=== PATIENT | female | born 1985 | race Caucasian/White ===

== ENCOUNTER 2024-12-01 23:11 | Day surgery (SDC) | payer OTHER, SELFPAY ==
[2024-12-01 18:33] VITALS: BP 165/110
--- NOTE | 2024-12-01 18:57 | ED.GENMED ---
History of Present Illness
<YADIRA Xiong - Last Filed: 12/01/24 23:14>
General
Chief Complaint: Vaginal Bleeding
Source: patient
Exam Limitations: none
Time Seen by Provider: 12/01/24 18:49
Nursing documentation reviewed up to this point in time: agreed with
History of Present Illness
History of Present Illness:
Patient is a 39-year-old female with past medical history of factor V Leiden, on progesterone only control, Mendy presents to the ER for vaginal bleeding. Patient reports she has been bleeding for the past 8 days and this was 2 weeks early
for her regular menses. She typically reports she bleeds heavy for the first 2 days however for the past 8 days she has been bleeding heavy and has had cramping the entire time. Normally when she has her menstrual cycle she only has cramping for
the first 1 or 2 days. She took a home test at home which was positive. She has not missed her control.
Review of Systems
<YADIRA Xiong - Last Filed: 12/01/24 23:14>
Review of Systems
Allergies reviewed?: Yes
Constitutional: Reports no symptoms
Respiratory: Reports no symptoms
Cardiac: Reports no symptoms
: Reports bleeding and other (lower abd cramping )
Musculoskeletal: Reports no symptoms
Skin: Reports no symptoms
Hematologic/Lymphatic: Reports no symptoms
Psychiatric: Reports no symptoms
Phy Exam
<YADIAR Xiong - Last Filed: 12/01/24 23:14>
General Physical Exam
General Presentation: no apparent distress
General age: appears stated age
General Skin: warm and dry
General Habitus: normal
General Mental: alert
General Hydration: appears well hydrated
Gastrointestinal Exam
Gastrointestinal Exam: non tender and soft
Neurological Exam
Neurological Exam: alert and oriented x3
Course
<YADIRA Xiong - Last Filed: 12/01/24 23:14>
Orders/Labs/Results
Orders:
Orders
12/01/24 19:10
IV Insert/Care/Rem.- Treatment PRN
0.9% Sodium Chloride 1000 ml [Nss] 1,000 ml IV BOLUS
12/01/24 19:11
Urinalysis Reflex To Culture Urgent
Specimen Description:
Date Specimen was Collected: 12/01/24
Time Specimen was Collected: 19:13
12/01/24 19:32
Blood Group&Type Urgent
Gel Atypical Antibody Screen Urgent
[id number] Wristband Number:
Beta HCG Quantitative Urgent
Is this a screen?: No
Complete Blood Count/With Diff Urgent
Comprehensive Metabolic Panel Urgent
12/01/24 19:43
US 1st Trimester Urgent
Comment:
Reason For Exam: vag bleeding/cramping
12/01/24 19:55
ABO2 Urgent
BBK Wristband Number:
Associate notified that ABO2 has been ordered: [id number]
Date: 12/01/24
Time: 19:45
[facility]ship ID: [id number]
12/01/24 21:49
0.9% Sodium Chloride 1000 ml [Nss] 1,000 ml IV BOLUS
12/01/24 22:46
Compression Sleeves [Pneumatic Compression Sleeves] As Directed
Type: Thigh high
12/01/24 22:48
DX Deep Vein Thrombosis Video Routine
12/01/24 23:00
CeFAZolin 2 GRAM [Ancef] 2 grams in 10 ml IV PRE PROCEDURE
Flush (0.9% Sodium Chloride) [Flush (Nss)] See Dose Instructions IV PER PROTOCOL
Abnormal Lab Results
12/01/24
19:32
Glucose 121 H mg/dl
(70-99)
12/01/24 19:32
12/01/24 19:32
Vital Signs
Initial and Last Documented VS:
Initial Vital Signs
Temp Pulse Resp BP Pulse Ox
98.8 F 118 18 165/110 99
12/01/24 18:33 12/01/24 18:33 12/01/24 18:33 12/01/24 18:33 12/01/24 18:33
Last Documented Vital Signs
Temp Pulse Resp BP Pulse Ox
98.8 F 118 18 165/110 99
12/01/24 18:33 12/01/24 18:33 12/01/24 18:33 12/01/24 18:33 12/01/24 18:33
<Jose Crawford MD - Last Filed: 12/01/24 22:44>
Orders/Labs/Results
Orders:
Orders
12/01/24 19:10
IV Insert/Care/Rem.- Treatment PRN
0.9% Sodium Chloride 1000 ml [Nss] 1,000 ml IV BOLUS
12/01/24 19:11
Urinalysis Reflex To Culture Urgent
Specimen Description:
Date Specimen was Collected: 12/01/24
Time Specimen was Collected: 19:13
12/01/24 19:32
Blood Group&Type Urgent
Gel Atypical Antibody Screen Urgent
BBK Wristband Number:
Beta HCG Quantitative Urgent
Is this a screen?: No
Complete Blood Count/With Diff Urgent
Comprehensive Metabolic Panel Urgent
12/01/24 19:43
US 1st Trimester Urgent
Comment:
Reason For Exam: vag bleeding/cramping
12/01/24 19:55
ABO2 Urgent
BBK Wristband Number:
Associate notified that ABO2 has been ordered: [id number]
Date: 12/01/24
Time: 19:45
[facility]ship ID: [id number]
12/01/24 21:49
0.9% Sodium Chloride 1000 ml [Nss] 1,000 ml IV BOLUS
12/01/24 22:46
Compression Sleeves [Pneumatic Compression Sleeves] As Directed
Type: Thigh high
12/01/24 22:48
DX Deep Vein Thrombosis Video Routine
12/01/24 23:00
CeFAZolin 2 GRAM [Ancef] 2 grams in 10 ml IV PRE PROCEDURE
Flush (0.9% Sodium Chloride) [Flush (Nss)] See Dose Instructions IV PER PROTOCOL
Abnormal Lab Results
12/01/24
19:32
Glucose 121 H mg/dl
(70-99)
12/01/24 19:32
12/01/24 19:32
Vital Signs
Initial and Last Documented VS:
Initial Vital Signs
Temp Pulse Resp BP Pulse Ox
98.8 F 118 18 165/110 99
12/01/24 18:33 12/01/24 18:33 12/01/24 18:33 12/01/24 18:33 12/01/24 18:33
Last Documented Vital Signs
Temp Pulse Resp BP Pulse Ox
98.8 F 118 18 165/110 99
12/01/24 18:33 12/01/24 18:33 12/01/24 18:33 12/01/24 18:33 12/01/24 18:33
<YADIRA Xiong - Last Filed: 12/01/24 23:14>
MDM/Problems Addressed
Differential Diagnosis Includes:
not limited to:
Miscarriage irregular vaginal bleeding, ruptured ectopic
MDM/Problems Addressed:
As documented patient is a 31-year-old female who presented with 3 days of vaginal bleeding, this is actually 2 weeks earlier than her due date for her scheduled menses. She presented with bleeding and abdominal cramping denied any lightheaded
dizziness. Patient is on oral Jencycla has not missed her dose of medication. Her beta hCG is low at 899 and as per radiology she has an acute ruptured ectopic . She is stable her blood pressure is 139/84 taken by myself her heart rate
is in the 80s. She is no acute distress. Case reviewed with BLADE ALIGNER and ED physician,.
Pt was eval by DR England who took pt to the OR.
<YADIRA Xiong - Last Filed: 12/01/24 23:14>
*Critical Care Note
Total Time (30-74mins, 75-104mins- exclusive of procedures): Not Applicable
ED Attending Note
<YADIRA Xiong - Last Filed: 12/01/24 23:14>
-
Portions of this chart may have been created with voice recognition software.� Occasional wrong word or��sound alike� substitutions may have occurred due to the inherent limitations of voice recognition software.
<Jose Crawford MD - Last Filed: 12/01/24 22:44>
ED Attending Note
Patient seen and examined by attending physician: Yes
ED Attending Note:
I have seen and evaluated the patient with a [id number] encounter. I have spoken to the advance practicer provider and involved in the medical history, the physical exam, medical decision making.
Evaluation and management service: agree unless noted differently below.
Results interpretation: agree unless noted differently below.
Focused HPI: 39-year-old female with no reported chronic medical history A1 presents to the emergency department for evaluation of vaginal bleeding and positive test. Patient says that her last menstrual period was 3 weeks ago. 1
week ago she started bleeding early�she thought that she was having an early period. She says that bleeding has been heavier than usual and has been ongoing x 8 days which is longer than usual for her menstrual period. She has had associated
cramping somewhat worse on the right side. Today took a test and it was positive and so she came to the ER.
Physical exam: Awake and alert no distress. Hypertensive, mildly tachycardic. Abdomen soft tender to palpation in the right lower quadrant.
Medical Decision Makin-year-old female presents for vaginal bleeding and cramping. Positive test at home today. CBC shows normal hemoglobin. CMP no clinically significant abnormalities. Her hCG is positive, hCG quant 899.
Unfortunately her pelvic ultrasound was concerning for ruptured ectopic . Nurse practitioner discussed with [facility] for OR.
Discharge Plan
Departure
Patient Disposition: OR
Date of Disposition: 12/01/24
Time of Disposition: 22:35
Admit to: OR
Admit to doctor: Tomás
Presentation/result/management discussed w/ accepting MD/DO: Tomás
Patient with high blood pressure during this ER visit?: Yes
Condition: Fair
Covid-19: Not Applicable
Discharge Problem:
ruptured ectopic
Referrals:
Delano Marino MD [Family Provider] -
Interventions
Interventions:
*Risk Screen - Suicide Last Done: 12/01/24 18:35
*General Assessment Last Done: 12/01/24 18:35
*Neglect/Abuse Screening Last Done: 12/01/24 18:35
*ED- Fall Risk Assessment Last Done: 12/01/24 19:41
*ED COVID-19 Vaccine History Last Done: 12/01/24 18:35
*Nursing Disposition Last Done: 12/01/24 23:08
ED-Female Genitourinary Assessment Last Done: 12/01/24 19:38
Discharge Date and Time
Print Language: CHINESE
[2024-12-01] MEDS: NSS 1000 IV ×2 (19:32→21:51)
[2024-12-01 19:37] VITALS: BMI 36.3
[2024-12-01 19:41] LABS: % Basophils 0.9 % (0-2); % Eosinophils 3.1 % (0-6); % Immature Granulocytes 0.1 % (0-0.5); % Lymphocytes 25.2 % (20.5-51.1); % Monocytes 7.3 % (1.7-9.3); % Neutrophils 63.4 % (42.2-75.2); Absolute Basophils 0.1 10^3/uL (0-0.2); Absolute Eosinophils 0.2 10^3/uL (0-0.7); Absolute Lymphocytes 1.7 10^3/uL (1.2-3.4); Absolute Monocytes 0.5 10^3/uL (0.1-0.6); Absolute Neutrophils 4.3 10^3/uL (1.4-6.5); Hemoglobin 13.2 g/dL (12.0-16.0); Mean Corp Hgb Conc. 34.7 g/dL (33.0-37.0); Mean Corpuscular Hgb 29.9 pg (27.0-31.0); Nucleated Red Blood Cells % 0 %; Platelet Count 258 10^3/uL (130-400); Red Blood Cell Count 4.42 10^6/uL (4.20-5.40); Red Cell Dist. Width 12.4 % (11.5-14.5); White Blood Cell Count 6.8 10^3/uL (4.8-10.8)
[2024-12-01 19:45] VITALS: BP 112/64
[2024-12-01 20:13] LABS: ALT (SGPT) 17 U/L (0-35); AST (SGOT) 20 U/L (14-36); Albumin 4.1 g/dl (3.5-5.0); Alkaline Phosphatase 62 U/L (38-126); Blood Urea Nitrogen 8 mg/dl (7-17); Calcium 9.2 mg/dl (8.4-10.2); Carbon Dioxide 26 mmol/L (22-30); Chloride 105 mmol/L (98-107); Estimated Creatinine Clearance > 125 ml/min; Glucose 121 mg/dl (70-99); Potassium 3.7 mmol/L (3.5-5.1); Sodium 140 mmol/L (135-145); Total Bilirubin 0.7 mg/dl (0.2-1.3); Total Protein 7.5 g/dl (6.3-8.2); eGFR > 60.00
[2024-12-01 20:18] LABS: Beta HCG Quantitative 899.19 mIU/ml
[2024-12-01 23:00] VITALS: BP 139/84
[2024-12-01 23:15] LABS: Urine Albumin Negative (Neg - Trace); Urine Bilirubin Negative (Negative); Urine Character Slightly Cloudy (Clear); Urine Color Yellow; Urine Glucose Negative (Negative); Urine Ketone Negative (Negative); Urine Leukocyte Negative (Negative); Urine Nitrite Negative (Negative); Urine Occult Blood 4+ (Negative); Urine Specific Gravity 1.005 (<1.030); Urine Urobilinogen Negative (Neg - 1+)
[2024-12-01 23:22] LABS: Urine Squamous Cell 16-20 /LPF (Few)
[2024-12-01 23:23] LABS: Urine Bacteria Moderate (Negative); Urine Red Blood Cell 16-20 /HPF (0-2)
[2024-12-02] VITALS (11 sets, daily range): BP systolic 101–139; BP diastolic 58–84
[2024-12-02] MEDS: DEMEROL 12.5 MG IV ×2 (01:27→01:37)
[2024-12-02] MEDS: SUBLIMAZE 50 MCG IV (01:56)
--- NOTE | 2024-12-02 02:59 | PTCARENOTE ---
Pt arrived to floor from PACU. Pt AAOx3. HR in the 70's. POX 98% on RA. + bowel, round abd. 3 lap sites with steri strips and bandaids in place. Pt reports abd pain 3/10 at this time. Knee high seq in place. Right AC int capped. Call lemos in reach.
Water provided. Will continue to monitor.
[2024-12-02] MEDS: MOTRIN 800 MG PO (03:41)
--- NOTE | 2024-12-02 05:48 | W.PN.GYN.DG ---
Today's Communication / Plan
-
CBC this am
D/c to home after am BW
Regular diet this am
F/u in office in 2 weeks for post opcheck
Will contact pt about f/u hcg before that visit
Assessment / Plan
-
Assessment:
s/p LPS BS for reuptrued R ectopic and sterilization
Plan:
CBC this am
D/c to home after am BW
Regular diet this am
F/u in office in 2 weeks for post opcheck
Will contact pt about f/u hcg before that visit
Subjective / Objective Data
Subjective Data
PT doing well - pain is much better - no pain on right - no n/v - took only motrin for post op pain per pt
Objective Data
Vital Signs
Temp Pulse Resp BP Pulse Ox
98.1 F 97 18 114/65 96
12/02/24 05:31 12/02/24 05:31 12/02/24 05:31 12/02/24 05:31 12/02/24 05:31
Intake & Output
11/30/24 12/01/24 12/02/24
06:59 06:59 06:59
Intake Total 680 / 680
Output Total 400 / 400
Balance 280 / 280
Intake:
Oral fluids 480 / 480
IV fluids (Total) 200 / 200
normosol 200 / 200
Output:
Urine, Voided 400 / 400
Physical Exam
-
Abdomen: Soft and Other (appropriately tneder )
Extremities: Other (+ comnp stockings )
Incision: Clean, Dry and Intact (scnat blood on bandaids)
Data Reviewed
-
Lab Data
12/01/24 19:32
Urine Color Yellow 12/01/24 22:57
Urine Clarity Slightly cloudy (Clear) 12/01/24 22:57
Urine pH 7.0 (5.0-9.0) 12/01/24 22:57
Ur Specific [place] 1.005 (<1.030) 12/01/24 22:57
Urine Ketones Negative (Negative) 12/01/24 22:57
Urine Bilirubin Negative (Negative) 12/01/24 22:57
Urine Urobilinogen Negative (Neg - 1+) 12/01/24 22:57
--- NOTE | 2024-12-02 05:53 | W.DS.TRANS ---
DC Summary - Business Services Representative
-
Discharge Instructions:
Discharge Diagnosis/Procedures s/p LPS - bilat salpingectomy - for ruptured
ectopci and strilization
Diet No restrictions
Activity No strenuous activity
Additional Activity Pelvic rest
Driving Restrictions No driving for 24 hours
Bathing Restrictions OK to Shower
Instructions:
Stand-Alone Forms:
Changes to Home Medications: No
Discharge Medications:
Home Medication Changes
Pending Results: No
[2024-12-02 07:01] LABS: Hematocrit 35.7 % (37.0-47.0); Hemoglobin 12.2 g/dL (12.0-16.0); Mean Corp Hgb Conc. 34.2 g/dL (33.0-37.0); Mean Corpuscular Hgb 29.5 pg (27.0-31.0); Mean Corpuscular Volume 86.2 fL (81.0-99.0); Mean Platelet Volume 10.4 fL (7.4-10.4); Platelet Count 257 10^3/uL (130-400); Red Blood Cell Count 4.14 10^6/uL (4.20-5.40); Red Cell Dist. Width 12.4 % (11.5-14.5); White Blood Cell Count 8.1 10^3/uL (4.8-10.8)
--- NOTE | 2024-12-02 09:05 | CM ---
CM following re: discharge planning.
Reviewed pt's chart, met with pt and pt's at bedside.
Pt is a 39 year old female admitted with SDC status and primary dx of POD#1 s/p LPS - bilat salpingectomy
Pt reports she lives with and 2 children 2SH, 1 step to enter and pt described herself as independent in all areas S[employer]IOR [employer]MI[employer].
D/C order noted. Both pt and her are aware and will transport pt home.
PCP: Delano Marino
Pharmacy: [facility]
D/C plan: home with no after care VN needs. to transport.
== END 2024-12-02 10:16 | disposition home or self-care (01) ==
LOC: SDS 23:11
PROVIDERS: Nurse Practitioner; ATTENDING PHYSICIAN Obstetrics & Gynecology Gynecology; EMERGENCY PHYSICIAN Emergency Medicine; FAMILY PHYSICIAN Family Medicine
DX: O00.101 Right tubal pregnancy without intrauterine pregnancy (principal); D28.2 Benign neoplasm of uterine tubes and ligaments; Z30.2 Encounter for sterilization
CPT/HCPCS: 59151; 88305; 76801; 80053; 81003; 81015; 84702; 85025; 85027; 86850; 86900; 86901; 87086; 96360; 96361; 99285; C1776